=== PATIENT | male | born 1945 | race Caucasian/White ===

== ENCOUNTER 2017-08-14 12:19 | Emergency (ER) | payer MEDICARE, BC ==
[2017-08-14 13:48] LABS: #Basophils 0.1 thou/uL (0.0-0.2); #Eosinphils 0.5 thou/uL (0.0-0.7); #Lymphocytes 1.4 thou/uL (1.20-3.40); #Monocytes 0.8 thou/uL (0.11-0.59); #Neutrophils 3.1 thou/uL (1.40-6.50); %Basophils 1.2 % (0.0-1.0); %Eosinophils 7.9 % (0.0-10.0); Hemoglobin 14.1 g/dL (14.0-18.0); Mean Corpuscular HGB CONC 32.5 g/dL (32.0-36.0); Mean Corpuscular Hemoglobin 31.6 pg (27.0-31.0); Mean Corpuscular Volume 97.2 fl (80.0-94.0); Mean Platelet Volume 9.5 fL (7.4-10.4); Platelet Count 132 thou/uL (130-400); RBC Distribution Width 12.4 % (11.5-14.5); Red Blood Cell (RBC) Count 4.45 mill/uL (4.70-6.10); White Blood Cell (WBC) Count 5.8 thou/uL (4.8-10.8)
[2017-08-14 14:06] LABS: Anion Gap 11 mmol/L (10-20); BUN (Urea Nitrogen) 16 mg/dL (8.4-25.7); Calc. Creatinine Clearance 0 mL/min (70-130); Calcium 9.5 mg/dL (7.8-10.44); Carbon Dioxide 22 mmol/L (23-31); Chloride 107 mmol/L (98-107); Estimated GFR-MDRD Greater than 90; Glucose 91 mg/dL (83-110); Potassium 4.2 mmol/L (3.5-5.1); Sodium 136 mmol/L (136-145)
[2017-08-14 14:43] LABS: Bilirubin Negative (Negative); Blood, Urine Negative (Negative); Clarity CLEAR (Clear); Glucose, Urine (Dipstick) Negative (Negative); Leukocyte Negative (Negative); Nitrite Negative (Negative); Protein, Urine (Dipstick) Negative (Neg-Trace); Specific Gravity, Urine 1.015 (1.002-1.036); Urobilinogen 0.2 mg/dL (0.2-1.0); pH, Urine 6.5 (5.0-9.0)
== END 2017-08-14 15:20 ==
LOC: ERS 12:19
DX: R31.9 Hematuria, unspecified (principal); E78.5 Hyperlipidemia, unspecified; I10 Essential (primary) hypertension
CPT/HCPCS: 36415; 80048; 81003; 85025; 99283

== ENCOUNTER 2018-01-25 12:12 | Outpatient (CLI) | payer MEDICARE, BC ==
[2018-01-25 14:21] LABS: #Basophils 0.1 thou/uL (0.0-0.2); #Eosinphils 0.5 thou/uL (0.0-0.7); #Lymphocytes 1.6 thou/uL (1.20-3.40); #Monocytes 0.8 thou/uL (0.11-0.59); #Neutrophils 3.7 thou/uL (1.40-6.50); %Basophils 0.9 % (0.0-1.0); %Eosinophils 7.2 % (0.0-10.0); %Lymphocytes 24.1 % (21.0-51.0); %Monocytes 11.7 % (0.0-10.0); %Neutrophils 56.1 % (42.0-75.0); Hemoglobin 14.6 g/dL (14.0-18.0); Mean Corpuscular HGB CONC 33.6 g/dL (32.0-36.0); Mean Corpuscular Hemoglobin 32.7 pg (27.0-31.0); Mean Corpuscular Volume 97.4 fL (78.0-98.0); Mean Platelet Volume 9.9 fL (7.4-10.4); Platelet Count 141 thou/uL (130-400); RBC Distribution Width 12.5 % (11.5-14.5); Red Blood Cell (RBC) Count 4.45 mill/uL (4.70-6.10); White Blood Cell (WBC) Count 6.7 thou/uL (4.8-10.8)
[2018-01-25 14:47] LABS: Anion Gap 10 mmol/L (10-20); BUN (Urea Nitrogen) 16 mg/dL (8.4-25.7); Calc. Creatinine Clearance 0 mL/min (70-130); Calcium 9.2 mg/dL (7.8-10.44); Carbon Dioxide 24 mmol/L (23-31); Chloride 107 mmol/L (98-107); Estimated GFR-MDRD Greater than 90; Glucose 87 mg/dL (83-110); Potassium 4.1 mmol/L (3.5-5.1); Sodium 137 mmol/L (136-145)
--- NOTE | 2018-01-25 15:53 | RAD ---
PA AND LATERAL CHEST: History: Pre-operative evaluation. FINDINGS: The heart size is normal. The aorta is tortuous. The lungs are well expanded without focal areas of c onsolidation, pneumothorax, or pleural effusions. No acute osseous abnormality seen. IMPRESSION: No radiographic evidence of acute cardiopulmonary process. POS: [facility]
== END 2018-01-25 12:13 | disposition home or self-care (01) ==
LOC: LABBT 12:12
PROVIDERS: ATTEND Orthopaedic Surgery Hand Surgery
DX: Z01.818 Encounter for other preprocedural examination (principal); M18.12 Unilateral primary osteoarthritis of first carpometacarpal joint, left hand; M25.242 Flail joint, left hand
CPT/HCPCS: 71046; 80048; 85025; 93005; 93010

== ENCOUNTER 2018-01-26 07:24 | Day surgery (SDC) | payer MEDICARE, BC ==
[2018-01-25 12:56] VITALS: BMI 32.8
[2018-01-26] MEDS ORDERED: Fentanyl 100 MCG/2 ML VIAL ONE ×3 (07:35→10:06)
[2018-01-26] MEDS ORDERED: Midazolam HCl 2 mg/2 ml Vial ONE ×2 (07:35→09:37)
[2018-01-26] MEDS ORDERED: CEFAZOLIN 2 GM/50 ML BAG ONE (08:57)
[2018-01-26] MEDS ORDERED: Lidocaine 1% (PF) 30 ML VIAL ONE (09:41)
[2018-01-26] MEDS ORDERED: Bupivacaine PF 0.5% 30 ML VIAL ONE (10:01)
[2018-01-26] MEDS ORDERED: Sodium Chloride 0.9% 10 ML ONE (10:01)
[2018-01-26] MEDS ORDERED: Bacitracin Zinc Ointment 30 gm TUBE ONE (10:01)
[2018-01-26] MEDS ORDERED: HYDROcodone/Acetaminophen 5/325 mg Tablet PO PRN ×2 (10:35)
[2018-01-26] MEDS ORDERED: Promethazine HCl 25 MG/ML VIAL IM PRN (10:35)
[2018-01-26] MEDS ORDERED: Zolpidem Tartrate 5 MG TAB PO PRN (10:35)
[2018-01-26] MEDS ORDERED: Fentanyl 100 MCG/2 ML VIAL IV PRN (10:35)
[2018-01-26] MEDS ORDERED: traMADol HCl 50 MG TAB PO PRN ×2 (10:35)
[2018-01-26] MEDS ORDERED: Ropivacaine 0.2% 550 ML 550 ML NERVE BLCK SCH (10:35)
[2018-01-26] MEDS ORDERED: Ondansetron PF 4 MG/2 ML Vial IVP PRN (10:35)
[2018-01-26] MEDS ORDERED: PHENYLEPHRINE-NS 100 MCG/ML 10 ML SYRINGE ONE ×3 (11:21→14:37)
--- NOTE | 2018-01-26 12:57 | RAD ---
LEFT HAND THREE VIEWS: History: Left thumb joint replacement. FINDINGS/IMPRESSION: Multiple limited intraoperative fluoroscopic views of the left hand were submitted for interpretation . The patient has ongoing percutaneous pinning of the thumb metacarpal phalangeal joint. The later im ages show a pin within the trapezium which is eventually removed. The last image shows a pin appearin g to span the first and second metacarpals. POS: [facility]
[2018-01-26] MEDS ORDERED: Ropivacaine 0.2% HCl/PF (40 MG/20 ML VIAL) ONE (14:18)
[2018-01-26] MEDS ORDERED: Ropivacaine 0.5% HCl/PF (150 MG/30 ML VIAL) ONE (14:18)
[2018-01-26] MEDS ORDERED: ePHEDrine/0.9% NaCl/PF SYRINGE 50 mg/10 ml ONE (14:37)
[2018-01-26] MEDS ORDERED: PROPOFOL 200 MG/20 ML VIAL ONE (14:37)
[2018-01-26] MEDS ORDERED: Ondansetron PF 4 MG/2 ML Vial ONE (14:37)
[2018-01-26] MEDS ORDERED: Glycopyrrolate 0.2 MG/ML 5 ML SYRINGE ONE (14:37)
[2018-01-26] MEDS ORDERED: Lidocaine 1% PF 5 ML VIAL ONE (14:37)
--- NOTE | 2018-01-27 13:11 | OP ---
DATE OF PROCEDURE: 01/26/2018 PREOPERATIVE DIAGNOSES: 1. Left thumb carpometacarpal joint osteoarthritis. 2. Left thumb metacarpophalangeal joint laxity, recurrent subluxation. PROCEDURES PERFORMED: 1. Complete trapeziectomy, left thumb carpometacarpal joint. 2. Ligament placement, tendon position with flexor carpi radialis tendon transfer, left thumb carpom etacarpal joint. 3. C-arm supervision. 4. Left thumb metacarpophalangeal joint arthrotomy with capsulodesis/capsular shift procedure and pi nning of the joint. 5. Pinning of the thumb, first and second metacarpal. ESTIMATED BLOOD LOSS: 10 mL. TOURNIQUET TIME: 79 minutes. FINDINGS: Osteoarthritis great than 70% in total carpometacarpal joint with osteophyte formation bot h sides of carpometacarpal joint space. INDICATIONS: The patient is a male who has failed conservative treatment for these lesions, had pain for many years and now at age 73, it has caused great inability to perform activities of daily livin g with the left hand/thumb complex. DESCRIPTION OF PROCEDURE: After successful general LMA technique by [employer] [facility], the patient 's limb was then prepped and draped. The patient then had the time-out done appropriately, x-rays co nfirm that the [facility] was the site as well as did the markings. The history and physical and consent al l said left thumb carpometacarpal joint and MP joint. First, after exsanguination of limb and inflated tourniquet to 250 mmHg pressure, we outlined the cur vilinear incision over the carpometacarpal joint, volar skin to the dorsal skin junction and the inci jose juan centered just past the A1 julian of the thumb for the capsulodesis at the MP joint. First, HAJA saenz, carried through the skin and subcutaneous tissue, identified the digital nerves and protected t hem. We then made a V-shaped incision in the capsule, and then lifted this up and advanced it pants- over-vest using 4-0 Prolenes. We placed them in place to be tied and before tying them, reflected th e thumb to 20-25 degrees of flexion and then pinned it with a 0.45 K-wire across the joint in excelle nt position in frontal and sagittal plane and no gross motion. We then tied the sutures and it had e xcellent feel. We then cut this wire, once C-arm confirmed position to be in excellent, 4 mm protruding with a band in this to protect it from migration. I now turned attention to the primary carpometacarpal joint, curvilinear incision beginning as far __ ___ hand as just radial to the first carpi radialis outlined, carried through skin, subcutaneous tiss ue, protecting the radial nerve branches, the nerve branches, skin of the palm and then we could easi ly visualize the fascia of the thenar attachment to the metacarpal. We then released this, it, visualize the joint capsule just dorsal and ulnar to the abductor insertion. We protected this and released it. We then tagged it for two heavy 2-0 Monocryl for later closure, expanded and comple te until were back on the scaphoid and then we were able to free up the joint. It was here that we v isualized 70% high grade articular loss of bone on bone and eburnated bone surface is congruent, larg e osteophytes was excised, and there we placed a K-wire from the frontal and sagittal plane on the tr apezium. Trapezium was completely exposed, open sheath, protected it with traction and began t o slowly lift out the trapezium. Protecting the flexor carpi radialis insertion of the second metaca rpal, we then were able to excise it after C-arm confirmed that the threaded K-wire was in the trapez ium. Then, we placed a heavy Prolene in the deep ulnar aspect of the thumb posterior capsule for lat er use and securing with Anchovy and then prepared for drilling. We identified all the nerves on the dorsal side of the thumb protecting them, take the extensor tendo n of the thumb and then visualized the drill hole spot which is approximately 1.5 cm proximal to the joint on the lateral side, removed all osteophytes that was still visible in the base of the thumb an d then drilled this with first a 2.5 drill bit followed by a 3.5 drill bit. We expanded the entire _ ____ flexor carpi radialis tendon was, but we had an excellent tunnel. We protected this tunnel, the n proceeded to harvest the flexor carpi radialis tendon. We noted that the tunnel was drilled in the plane of the nail bed with the nail bed just parallel as possible to the palm. The patient's flexor carpi radialis tendon harvested using two separate incisions in forearm each one slightly more distal than the other from the wrist at the most proximal we found a muscle tendon kurt ction elevated, and released it with a sharp knife. We then dissected the muscle belly con nections free and then we were able to slowly and gently slide into the primary wound. Here, we marichuy funmi all remnants of muscle, and was easily able to pass this tendon through the drilled tunnel especi ally this had been opened more further with a curet. We then reduced the joint near its anatomic as possible slightly more distal than would be to protect the repair, placed a 0.45 K-wire from the meta carpal to protect ulnar nerves, distal to the tunnel, but into the second metacarpal. Once we confir med C-arm in frontal and sagittal plane, C-arm was done. We bent the wire, cut it at a level of 2 mm protruding from the skin at the thumb metacarpal. Then, we tensioned the graft as tight as possible with two 4-0 Prolenes at the graft bone junction tunnel outlet in the abductor pollicis where it was brought underneath and deep to this and then two along the base of the thumb before we even backed t o itself with heavy 4-0 Prolene. Then, we took the remnant that was left with two Pete needles, beg inning in the portion deepest in the space created by trapeziectomy, weaving it along the tendon unti l we had at least 12 weaves, then pulled the Prolene 3-0, it was inserted in the deep capsule. We th en passed one stitch on to each Pete needle brought through the needle, and then the interposition g raft was then placed deep and against the base of the thumb metacarpal as possible, we tied this over the appropriate tension deep in the capsule. We cut this suture, release of tourniquet, had excellent hemostasis and then began our closure. Firs t closure was done with the previously placed 2-0 Vicryl closing the capsule of the carpometacarpal j oint. We then repaired the fascia of the thenar back to the edge of the metacarpal fracture and some to the abductor with an interrupted 2-0 Vicryl. The subcutaneous closure was then accomplished, hem ostasis was excellent with interrupted 4-0 Monocryl and then this was done in the forearm incision as well. We closed the epidermal layers all at the same time with interrupted 4-0 nylon mattress patte rn both at the primary wrist procedure site and at the thumb metacarpophalangeal joint procedure site . There was excellent hemostasis and no undue bleeding. A splint was applied, sugar tong to include the digits and the patient left the operating room without evidence of anesthetic or operative compl ication.
== END 2018-01-26 15:35 | disposition home or self-care (01) ==
LOC: SDC 07:24
PROVIDERS: ATTEND Orthopaedic Surgery Hand Surgery
PROC: 0RRR0JZ Replacement of Left Carpal Joint with Synthetic Substitute, Open Approach (ICD-10-PCS; principal; 2018-01-26)
PROC: 0LX80ZZ Transfer Left Hand Tendon, Open Approach (ICD-10-PCS; 2018-01-26)
PROC: 0LU807Z Supplement Left Hand Tendon with Autologous Tissue Substitute, Open Approach (ICD-10-PCS; 2018-01-26)
PROC: 0RQT0ZZ Repair Left Carpometacarpal Joint, Open Approach (ICD-10-PCS; 2018-01-26)
DX: M19.042 Primary osteoarthritis, left hand (principal); M18.12 Unilateral primary osteoarthritis of first carpometacarpal joint, left hand; M25.732 Osteophyte, left wrist; M17.12 Unilateral primary osteoarthritis, left knee; I25.2 Old myocardial infarction; I25.10 Atherosclerotic heart disease of native coronary artery without angina pectoris; Z79.82 Long term (current) use of aspirin; Z79.899 Other long term (current) drug therapy; Z88.7 Allergy status to serum and vaccine
CPT/HCPCS: 25312; 25447; 26075; 73130; 76001; A4306; J2001; J2250; J2405; J2704; J2795; J3010; J3490; S0020

== ENCOUNTER 2018-06-03 00:07 | Outpatient (CLI) | payer MEDICARE, BC ==
[2018-06-03 14:16] LABS: Bilirubin Negative (Negative); Blood, Urine Negative (Negative); Clarity CLEAR (Clear); Glucose, Urine (Dipstick) Negative (Negative); Leukocyte Trace (Negative); Nitrite Negative (Negative); Protein, Urine (Dipstick) Negative (Neg-Trace); Specific Gravity, Urine 1.008 (1.002-1.036); Urobilinogen 0.2 mg/dL (0.2-1.0)
[2018-06-03 14:28] LABS: Bacteria/HPF None Seen HPF (None Seen); Hyaline Casts/LPF 0-3 HYALINE CAST LPF (0-3 Hyaline); Pathc Cast-AUWi Flag 0.67 (0-2.49); RBC/HPF 0-3 HPF (0-3); Squamous Epithelial None Seen HPF (0-3)
== END 2018-06-03 00:08 | disposition home or self-care (01) ==
LOC: LABBT 00:07
PROVIDERS: ATTEND Orthopaedic Surgery
DX: Z01.818 Encounter for other preprocedural examination (principal); M17.12 Unilateral primary osteoarthritis, left knee
CPT/HCPCS: 81001; 87081; 93005; 93010

== ENCOUNTER 2018-06-09 08:47 | Outpatient (CLI) | payer MEDICARE, BC ==
[2018-06-09 09:32] LABS: #Basophils 0.1 thou/uL (0.0-0.2); #Eosinphils 0.5 thou/uL (0.0-0.7); #Lymphocytes 1.5 thou/uL (1.20-3.40); #Monocytes 0.7 thou/uL (0.11-0.59); #Neutrophils 3.3 thou/uL (1.40-6.50); %Eosinophils 8.4 % (0.0-10.0); %Lymphocytes 24.3 % (21.0-51.0); %Monocytes 12.2 % (0.0-10.0); Hemoglobin 14.1 g/dL (14.0-18.0); Mean Corpuscular HGB CONC 32.6 g/dL (32.0-36.0); Mean Corpuscular Hemoglobin 31.5 pg (27.0-31.0); Mean Corpuscular Volume 96.5 fL (78.0-98.0); Mean Platelet Volume 9.4 fL (7.4-10.4); Platelet Count 146 thou/uL (130-400); RBC Distribution Width 12.5 % (11.5-14.5)
[2018-06-09 09:53] LABS: Anion Gap 11 mmol/L (10-20); BUN (Urea Nitrogen) 21 mg/dL (8.4-25.7); Calc. Creatinine Clearance 0 mL/min (70-130); Calcium 9.8 mg/dL (7.8-10.44); Carbon Dioxide 27 mmol/L (23-31); Chloride 104 mmol/L (98-107); Estimated GFR-MDRD 74; Glucose 104 mg/dL (83-110); Potassium 4.1 mmol/L (3.5-5.1); Sodium 138 mmol/L (136-145)
== END 2018-06-09 08:48 | disposition home or self-care (01) ==
LOC: LABBT 08:47
PROVIDERS: ATTEND Orthopaedic Surgery
DX: Z01.812 Encounter for preprocedural laboratory examination (principal); M17.12 Unilateral primary osteoarthritis, left knee
CPT/HCPCS: 80048; 85025; 85610; 86850; 86900; 86901

== ENCOUNTER 2018-06-14 05:31 | Inpatient (IN) | payer MEDICARE, BC ==
[2018-06-03 12:46] VITALS: BMI 32.8
[2018-06-14] MEDS ORDERED: Fentanyl 100 MCG/2 ML VIAL ONE (06:14)
[2018-06-14] MEDS ORDERED: Midazolam HCl 2 mg/2 ml Vial ONE (06:14)
[2018-06-14] MEDS ORDERED: Vancomycin HCl 1.5 GM in Sodium Chloride 0.9% 250 ML 300 ML IVPB SCH ×2 (06:15→20:00)
[2018-06-14] MEDS ORDERED: CEFAZOLIN 2 GM in Premix Bag 1 BAG IVPB SCH (06:15)
[2018-06-14] MEDS ORDERED: Tranexamic Acid 1,000 MG/10 ML VIAL ONE ×2 (06:37→09:02)
[2018-06-14] MEDS ORDERED: Sodium Chloride 0.9% 100 ML ONE (06:37)
[2018-06-14] MEDS ORDERED: Promethazine HCl 25 MG/ML VIAL IM PRN ×3 (07:11→09:01)
[2018-06-14] MEDS ORDERED: diphenhydrAMINE 25 MG CAP PO PRN (07:11)
[2018-06-14] MEDS ORDERED: HYDROcodone/Acetaminophen 10/325 mg Tablet PO PRN ×3 (07:11→07:45)
[2018-06-14] MEDS ORDERED: traMADol HCl 50 MG TAB PO PRN ×3 (07:11→07:45)
[2018-06-14] MEDS ORDERED: Zolpidem Tartrate 5 MG TAB PO PRN ×2 (07:11→07:45)
[2018-06-14] MEDS ORDERED: Fentanyl 100 MCG/2 ML VIAL SLOW IVP PRN ×2 (07:11→07:45)
[2018-06-14] MEDS ORDERED: Ondansetron PF 4 MG/2 ML Vial IVP PRN ×2 (07:11→07:45)
[2018-06-14] MEDS ORDERED: Acetaminophen 325 MG TAB PO PRN (07:11)
[2018-06-14] MEDS ORDERED: Tranexamic Acid 1,000 MG in Sodium Chloride 0.9% 100 ML IVPB SCH (07:15)
[2018-06-14] MEDS ORDERED: Bupivacaine PF 0.5% 30 ML VIAL ONE (07:40)
[2018-06-14] MEDS ORDERED: Ropivacaine HCl/PF 250 ML in Premix Bag 1 BAG NERVE BLCK SCH (07:45)
[2018-06-14] MEDS ORDERED: Ropivacaine 0.5% HCl/PF (150 MG/30 ML VIAL) ONE (08:26)
[2018-06-14] MEDS ORDERED: Ropivacaine 0.2% HCl/PF 20 ML ONE (08:26)
[2018-06-14] MEDS ORDERED: Aspirin Chewable 81 MG TAB PO SCH (09:00)
[2018-06-14] MEDS ORDERED: CeleCOXIB 100 MG CAP PO SCH (09:00)
[2018-06-14] MEDS ORDERED: Ondansetron HCl/PF 4 MG/2 ML Vial IVP PRN (09:01)
[2018-06-14] MEDS ORDERED: PACU-Morphine 4MG/ML VIAL SLOW IVP PRN (09:01)
[2018-06-14] MEDS ORDERED: HYDROmorphone 2 MG/ML VIAL SLOW IVP PRN (09:01)
[2018-06-14] MEDS ORDERED: Promethazine HCl 25 MG/ML VIAL SLOW IVP PRN (09:01)
[2018-06-14] MEDS: Ketorolac Tromethamine 30 MG/ML VIAL IVP SCH ×3 (12:54→23:12)
[2018-06-14] MEDS ORDERED: ePHEDrine 50 MG/ML VIAL ONE (15:18)
[2018-06-14] MEDS ORDERED: Dexamethasone 20 MG/5 ML VIAL ONE (15:18)
[2018-06-14] MEDS ORDERED: Ondansetron PF 4 MG/2 ML Vial ONE (15:18)
[2018-06-14] MEDS ORDERED: PROPOFOL 200 MG/20 ML VIAL ONE (15:18)
[2018-06-14] MEDS ORDERED: PHENYLEPHRINE-NS 100 MCG/ML 10 ML SYRINGE ONE (15:18)
[2018-06-14] MEDS ORDERED: Lidocaine 1% PF 5 ML VIAL ONE (15:18)
[2018-06-14] MEDS: CEFAZOLIN 2 GM in Premix Bag 1 BAG IVPB SCH ×2 (15:25→23:12)
[2018-06-14] MEDS: Carvedilol 6.25 MG TAB PO SCH ×2 (15:32→20:52)
--- NOTE | 2018-06-14 15:41 | OP ---
DATE OF PROCEDURE: 06/14/2018 MORTGAGE SALES MANAGER: Jarocho Felipe PA-C PREOPERATIVE DIAGNOSIS: Left knee osteoarthrosis. POSTOPERATIVE DIAGNOSIS: Left knee osteoarthrosis. PROCEDURE PERFORMED: Left total knee replacement using Trusera pinless navigation. ANESTHESIA: The patient did have a general anesthetic as well as preoperative block. ESTIMATED BLOOD LOSS: Minimal. COMPLICATIONS: None. DISPOSITION: He did go to recovery room in stable condition. IMPLANTS: To the left knee include triathlon total knee system. The femur was a size 5 cruciate retaining femur. We used a size 5 primary tibial base plate. We used a 5 x 9 mm CS X3 tibial poly and asymmetric 32 x 10 X3 poly patella. INDICATIONS: Marquise is a 73-year-old very active male, who has failed nonoperative treatment, at this time wished to have his knee replaced. PROCEDURE IN DETAIL: After all appropriate consent forms were explained and signed, the patient was taken back to the operating room and at this time was given general anesthetic. Once the level of anesthesia was appropriate, a well-padded tourniquet was placed on the leg, and the leg was then prepped and draped in standard surgical fashion. The limb was exsanguinated and tourniquet taken up to 300 mmHg. Midline incision was made with a 10 blade down through the skin and subcutaneous tissue. Bovie electrocautery was used to coagulate any brisk venous bleeding. A new blade was used to make a medial parapatellar arthrotomy. Small subperiosteal release was performed medially and excess fat pad was removed. The knee was flexed up to gain access to the femur. The femur was navigated and distal femoral resection was made. Epicondylar access was used to align our sizing jig and this was pinned in place. We sized our femur to be a. 4:1 cutting block was applied and pinned. Anterior and posterior chamfer cuts were then made. We navigated out our proximal tibia and made our proximal tibial resection. Spreaders were used to remove any posterior osteophytes off the back of the femur as well as remaining meniscal tissue. A long alignment lynette was then used to achieve correct rotation of our tibial baseplate and a size was chosen. This was pinned in place. We trialed the polyethylene and a polyethylene gave us full extension and good stability throughout range of motion. Two towel clips and a saw were used to cut our patella. Three lug nuts were drilled and patella was trialed which sat nicely in the trochlear groove. We then drilled our femur and punched our tibia. All components were removed. The knee was thoroughly irrigated and dried. Cement was mixed on the back table. Components were then placed. The knee was held out in full extension until the cement had dried. All excess bone cement was removed. Multiple #2 Vicryl stitches as well as a Quill were used to close our extensor mechanism. 0 Quill followed by a running Monoderm was then used to close the skin. Surgicel glue was then used on the skin. Once this had dried, soft tissue dressing was applied to the limb, tourniquet was let down, and the toes pinked up nicely. The patient was then awakened and taken to the recovery room in stable condition. All counts were correct at the end of the case. The patient did receive preoperative IV antibiotics. The patient was injected with Exparel for postoperative pain relief. Job ID: [id number] [facility]
[2018-06-14] MEDS: Aspirin 81 mg Enteric Coated Tablet PO SCH ×2 (17:23→20:52)
[2018-06-14] MEDS: Sodium Chloride 0.9% 1,000 ML IV SCH (18:26)
[2018-06-14] MEDS: Rosuvastatin 20 MG TAB PO SCH (20:51)
[2018-06-14] MEDS ORDERED: Calcium Carbonate 500 MG ChewTAB PO PRN (21:08)
--- NOTE | 2018-06-14 22:09 | CON ---
DATE OF CONSULTATION: 06/14/2018 CONSULTING PHYSICIAN: Dr. Abarca, orthopedic surgery. PURPOSE OF CONSULTATION: Medical management. HISTORY OF PRESENT ILLNESS: The patient is a 73-year-old male, who just underwent left total knee replacement by Dr. Abarca this morning. He does not have much complaints to offer except for some pain in the left knee area status post operation. He denies any chest pain. He denies use any shortness of breath. No constipation. No diarrhea. No abdominal pain. PAST MEDICAL HISTORY: Positive for: 1. Coronary artery disease. 2. Cardiomyopathy with LVEF of 45%. 3. Hyperlipidemia. 4. Myocardial infarction per history in 1998 involving the anterior wall. 5. Nephrolithiasis x4. 6. Macular degeneration. 7. Osteoarthritis. PAST SURGICAL HISTORY: 1. Coronary artery stent placement in June 1998, this was a placement to LAD. 2. Bilateral knee and shoulder surgery. 3. Cardiac catheterization. FAMILY HISTORY: Mother was killed by the train in her 70s and father had CVA. SOCIAL HISTORY: He used to smoke, but quit in 1971. He does not drink. He does not use any illicit drugs. ALLERGIES: TETANUS TOXOID, PRAVACHOL, AND LISINOPRIL. CURRENT MEDICATIONS: 1. Aspirin 81 mg twice daily. 2. Carvedilol 6.25 mg twice daily. 3. Celecoxib 200 mg once daily. 4. Ferrous gluconate 325 mg twice daily. Pantoprazole 40 mg once daily. 5. Rosuvastatin 20 mg at bedtime. 6. Zolpidem tartrate, which is Ambien 5 mg at bedtime p.r.n. as needed. 7. The patient is on p.r.n. pain medicine, tramadol, hydrocodone and fentanyl as needed. PHYSICAL EXAMINATION: GENERAL: He is not in any distress during my visit. HEENT: His head is atraumatic and normocephalic. Eyes are PERRLA. Sclerae are nonicteric. Oral mucosa is moist. NECK: Supple. LUNGS: Clear. HEART: S1, S2 normal. No S3. No S4. ABDOMEN: Soft, obese, nontender. EXTREMITIES: Left lower extremity is wrapped in the Chris wrap and bandage on his upper extremities. No cyanosis or edema. NEUROLOGIC: He is alert and oriented x4. There is no any motor or sensory deficits present. Cranial nerves are intact. LABORATORY DATA: None. IMAGING: EKG done on the 03 of June showed sinus bradycardia with ventricular rate of 59 beats per minute with left axis deviation and incomplete right bundle-branch block with some moderate voltage criteria for LVH and some evidence of anterolateral infarct with Q-waves in V3, V4, V5, and probably V6. IMPRESSION: 1. Status post left total knee replacement this morning. 2. Coronary artery disease and status post myocardial infarction, remote 20 years ago. 3. Macular degeneration in the right eye. 4. Hyperlipidemia. 5. Nephrolithiasis 4 times. RECOMMENDATIONS: I agree with the plan for DVT prophylaxis. Continue small dose of baby aspirin twice daily. I agree with continuation of his home medications. He is medically stable. He will be continued on PT per protocol postop total knee replacement and will have hemogram done tomorrow morning. Continue pain management with opioids and anti-inflammatory p.r.n. as needed. Job ID: [id number]
[2018-06-15] MEDS: Sodium Chloride 0.9% 1,000 ML IV SCH ×3 (02:43→22:16)
[2018-06-15 04:41] LABS: Hemoglobin 12.4 g/dL (14.0-18.0); Mean Corpuscular HGB CONC 31.6 g/dL (32.0-36.0); Mean Corpuscular Volume 98.2 fL (78.0-98.0); Mean Platelet Volume 9.2 fL (7.4-10.4); Platelet Count 131 thou/uL (130-400); RBC Distribution Width 12.6 % (11.5-14.5)
[2018-06-15] MEDS: Ketorolac Tromethamine 30 MG/ML VIAL IVP SCH ×4 (06:49→23:12)
[2018-06-15] MEDS: Senokot S 8.6-50 MG TAB PO SCH ×2 (08:25→19:39)
[2018-06-15] MEDS: Aspirin 81 mg Enteric Coated Tablet PO SCH ×2 (08:27→19:39)
[2018-06-15] MEDS: Multivitamin W/ Minerals 1 TAB PO SCH (08:27)
[2018-06-15] MEDS: Ferrous Gluconate 324 MG TAB PO SCH ×2 (08:27→18:22)
[2018-06-15] MEDS: Carvedilol 6.25 MG TAB PO SCH ×2 (09:15→19:43)
--- NOTE | 2018-06-15 09:59 | PRG ---
DATE OF SERVICE: 06/15/2018 SUBJECTIVE: Marquise is a 73-year-old white male, postoperative day 1 from a left total knee arthroplasty. He has very little in the way of complaints. He ambulated approximately 140 feet yesterday evening postoperatively with therapy. He has had no lightheadedness, no symptoms, and no shortness of breath or exertional dyspnea. OBJECTIVE: VITAL SIGNS: Temperature 98.6, pulse 61, respiratory rate 16 and nonlabored, blood pressure is 130/75. GENERAL: He is alert and oriented to person, place, time, and situation. Grossly nonfocal. EXTREMITIES: Incision, clean. No erythema. No strikethrough is noted. He is neurovascularly intact in both lower extremities. LABORATORY DATA: Hemoglobin and hematocrit 12.4 and 39.3. IMPRESSION: A 73-year-old male, postoperative day 1, left total knee arthroplasty, doing well. PLAN: Continue current care. Probable discharge tomorrow. Job ID: [id number]
[2018-06-15] MEDS: HYDROcodone/Acetaminophen 10/325 mg Tablet PO PRN (10:55)
--- NOTE | 2018-06-15 11:34 | PRG ---
DATE OF SERVICE: 06/15/2018 SUBJECTIVE: The patient is seen and examined at the bedside. He is doing well. He does not have much complaints to offer. OBJECTIVE: VITAL SIGNS: Blood pressure is 130/75, pulse is 61, temperature is 98.6, respiratory rate is 16, O2 saturation is 95% on room air. HEENT: His head is atraumatic and normocephalic. Eyes are PERRLA. Sclerae are nonicteric. NECK: Supple. LUNGS: Clear. HEART: S1 and S2 are normal. ABDOMEN: Soft, obese, and nontender. EXTREMITIES: extremity is in dressing. NEUROLOGIC: He is alert and oriented x4. There are no any motor or sensory deficits. Cranial nerves are intact. LABORATORY DATA: Showed white count of 11.0, hemoglobin 12.4, hematocrit 39.3, platelet count 131,000. IMPRESSION: 1. Status post left knee replacement. 2. Coronary artery disease status post myocardial infarction, remote 20 years ago, chronic, stable. 3. Macular degeneration in the right eye. 4. Hyperlipidemia. 5. Nephrolithiasis. 6. Cardiomyopathy with left ventricular ejection fraction of 45%, chronic, stable. 7. Osteoarthritis. PLAN: Plan is to continue his current regimen. Continue aspirin twice a day, his home medications, and follow the postoperative protocol with PT, and he should be able to go home tomorrow. Job ID: [id number]
[2018-06-15] MEDS: Rosuvastatin 20 MG TAB PO SCH (19:39)
[2018-06-16] MEDS: HYDROcodone/Acetaminophen 10/325 mg Tablet PO PRN ×3 (02:43→11:46)
[2018-06-16 04:58] LABS: Mean Corpuscular HGB CONC 32.6 g/dL (32.0-36.0); Mean Corpuscular Hemoglobin 32.1 pg (27.0-31.0); Mean Corpuscular Volume 98.4 fL (78.0-98.0); Mean Platelet Volume 9.6 fL (7.4-10.4); Platelet Count 118 thou/uL (130-400); RBC Distribution Width 12.6 % (11.5-14.5); Red Blood Cell (RBC) Count 3.74 mill/uL (4.70-6.10); White Blood Cell (WBC) Count 10.1 thou/uL (4.8-10.8)
[2018-06-16] MEDS: Ketorolac Tromethamine 30 MG/ML VIAL IVP SCH (06:25)
[2018-06-16] MEDS: Ferrous Gluconate 324 MG TAB PO SCH (07:44)
[2018-06-16] MEDS: Aspirin 81 mg Enteric Coated Tablet PO SCH (07:45)
[2018-06-16] MEDS: Carvedilol 6.25 MG TAB PO SCH (07:45)
[2018-06-16] MEDS: Multivitamin W/ Minerals 1 TAB PO SCH (07:45)
[2018-06-16] MEDS: Senokot S 8.6-50 MG TAB PO SCH (07:46)
[2018-06-16] MEDS ORDERED: CeleCOXIB 100 MG CAP PO SCH (09:00)
[2018-06-16] MEDS: Sodium Chloride 0.9% 1,000 ML IV SCH (11:32)
[2018-06-16 12:26] VITALS: TEMP 97.6
[2018-06-16 13:43] VITALS: BP 132/84
--- NOTE | 2018-06-16 16:36 | DIS ---
DATE OF ADMISSION: 06/14/2018 DATE OF DISCHARGE: 06/16/2018 TRANSFER OF CARE PRIMARY CARE PHYSICIAN: No PCP. Consultation to [facility] by Dr. Kyle Abarca. DISPOSITION: Discharged to home. FINAL DIAGNOSES: 1. Coronary artery disease. 2. Cardiomyopathy. 3. Hyperlipidemia. 4. Nephrolithiasis. 5. Macular degeneration. 6. Osteoarthritis. DISCHARGE MEDICATIONS: 1. Aspirin 81 mg a day. 2. Coreg 20 mg a day. 3. Omeprazole 20 mg a day. 4. Rosuvastatin 20 mg a day. 5. AREDS soft gel one a day. ALLERGIES: TETANUS VACCINE. HOSPITAL COURSE: The patient admitted to the hospital by Dr. Abarca on 06/14/2018. On 06/14/2018, he underwent left total knee replacement. He did well. [facility] was consulted for medical followup. The patient did well during his hospital stay. He was discharged this morning before [facility] could make round. Follow up will be with Dr. Abarca. Job ID: [id number]
== END 2018-06-16 14:04 | disposition home or self-care (01) | DRG 470 ==
LOC: SDC 05:31 → SJJU 07:11
PROVIDERS: ADMIT Orthopaedic Surgery; ATTEND Orthopaedic Surgery
PROC: 0SRD0J9 Replacement of Left Knee Joint with Synthetic Substitute, Cemented, Open Approach (ICD-10-PCS; principal; 2018-06-14)
DX: M17.12 Unilateral primary osteoarthritis, left knee (principal); I42.9 Cardiomyopathy, unspecified; I25.10 Atherosclerotic heart disease of native coronary artery without angina pectoris; H35.30 Unspecified macular degeneration; E78.5 Hyperlipidemia, unspecified; N20.0 Calculus of kidney; I25.2 Old myocardial infarction; Z98.61 Coronary angioplasty status; Z98.890 Other specified postprocedural states; Z87.891 Personal history of nicotine dependence; Z88.7 Allergy status to serum and vaccine; Z88.8 Allergy status to other drugs, medicaments and biological substances; Z79.82 Long term (current) use of aspirin
CPT/HCPCS: 36415; 85027; C1713; C1776; J1100; J1885; J2001; J2250; J2405; J2704; J2795; J3010; J3370; J3490; J7050; S0020

== ENCOUNTER 2018-07-06 18:22 | Emergency (ER) | payer MEDICARE, BC ==
--- NOTE | 2018-07-06 21:20 | RAD ---
RADIOGRAPH CHEST 2 VIEWS: DATE: 07/06/2018 HISTORY: 73-year-old male with urticaria, allergic reaction. FINDINGS: There is no airspace density, pulmonary edema, pleural effusion, pneumothorax, or cardiomegaly. IMPRESSION: No acute cardiopulmonary findings.
[2018-07-06 21:34] LABS: Hemoglobin 15.2 g/dL (14.0-18.0); Mean Corpuscular HGB CONC 32.7 g/dL (32.0-36.0); Mean Corpuscular Hemoglobin 31.8 pg (27.0-31.0); Mean Corpuscular Volume 97.3 fL (78.0-98.0); Mean Platelet Volume 8.7 fL (7.4-10.4); Platelet Count 284 thou/uL (130-400); RBC Distribution Width 12.3 % (11.5-14.5); Red Blood Cell (RBC) Count 4.79 mill/uL (4.70-6.10); White Blood Cell (WBC) Count 7.3 thou/uL (4.8-10.8)
[2018-07-06 21:52] LABS: Band 20 % (5-11); Eosinophils 2 % (0-10); Lymphocytes 33 % (21-51); MDiff Complete? YES; Monocytes 2 % (0-10); Myelocyte 1 % (0-0); Neutrophil 42 % (42-75)
[2018-07-06 22:18] LABS: ALT (SGPT) 29 U/L (8-55); AST (SGOT) 34 U/L (5-34); Albumin 3.9 g/dL (3.4-4.8); Alkaline Phosphatase 110 U/L (40-150); Anion Gap 20 mmol/L (10-20); BUN (Urea Nitrogen) 24 mg/dL (8.4-25.7); Bilirubin, Total 1.9 mg/dL (0.2-1.2); CK (CPK) 56 U/L (30-200); Calc. Creatinine Clearance 0 mL/min (70-130); Calcium 9.7 mg/dL (7.8-10.44); Carbon Dioxide 18 mmol/L (23-31); Chloride 98 mmol/L (98-107); Estimated GFR-MDRD 66; Globulin 3.6 g/dL (2.4-3.5); Glucose 107 mg/dL (83-110); Potassium 4.5 mmol/L (3.5-5.1); Protein, Total 7.5 g/dL (5.8-8.1); Sodium 131 mmol/L (136-145)
[2018-07-06] MEDS ORDERED: predniSONE 20 MG TAB ONE (23:45)
[2018-07-06] MEDS ORDERED: Famotidine 20 MG TAB ONE (23:45)
== END 2018-07-07 00:34 | disposition home or self-care (01) ==
LOC: ERS 18:22
DX: T78.40XA Allergy, unspecified, initial encounter (principal)
CPT/HCPCS: 36415; 71046; 80053; 82550; 83605; 84484; 85025; 93005; 94760; J7512

== ENCOUNTER 2019-03-14 07:56 | Day surgery (SDC) | payer MEDICARE, BC ==
[2019-03-11 09:14] VITALS: BMI 33.3
[2019-03-14 09:17] LABS: Hemoglobin 13.2 g/dL (14.0-18.0); Mean Corpuscular HGB CONC 33.2 g/dL (32.0-36.0); Mean Corpuscular Hemoglobin 32.5 pg (27.0-31.0); Mean Corpuscular Volume 97.9 fL (78.0-98.0); Mean Platelet Volume 9.3 fL (7.4-10.4); Platelet Count 120 thou/uL (130-400); RBC Distribution Width 12.6 % (11.5-14.5); Red Blood Cell (RBC) Count 4.06 mill/uL (4.70-6.10); White Blood Cell (WBC) Count 6.2 thou/uL (4.8-10.8)
[2019-03-14 09:30] LABS: Anion Gap 10 mmol/L (10-20); BUN (Urea Nitrogen) 12 mg/dL (8.4-25.7); Calc. Creatinine Clearance 103 mL/min (70-130); Calcium 8.8 mg/dL (7.8-10.44); Carbon Dioxide 25 mmol/L (23-31); Chloride 107 mmol/L (98-107); Estimated GFR-MDRD 79; Glucose 110 mg/dL (83-110); Potassium 4.1 mmol/L (3.5-5.1); Sodium 138 mmol/L (136-145)
[2019-03-14] MEDS ORDERED: Ketorolac Tromethamine 30 MG/ML VIAL ONE (10:13)
[2019-03-14] MEDS ORDERED: ePHEDrine/0.9% NaCl/PF SYRINGE 50 mg/10 ml ONE (10:13)
[2019-03-14] MEDS ORDERED: Lidocaine 1% PF 5 ML VIAL ONE (10:13)
[2019-03-14] MEDS ORDERED: PROPOFOL 200 MG/20 ML VIAL ONE (10:13)
[2019-03-14] MEDS ORDERED: Ondansetron PF 4 MG/2 ML Vial ONE (10:13)
[2019-03-14] MEDS ORDERED: Rocuronium Bromide 10 MG/ML (10ML VIAL) ONE (10:13)
[2019-03-14] MEDS ORDERED: Glycopyrrolate 0.2 MG/ML 5 ML SYRINGE ONE (10:13)
[2019-03-14] MEDS ORDERED: Fentanyl 100 MCG/2 ML VIAL ONE (11:23)
[2019-03-14] MEDS ORDERED: Tamsulosin HCl 0.4 MG CAP ONE (13:07)
--- NOTE | 2019-03-14 13:38 | OP ---
DATE OF PROCEDURE: 03/14/2019 INDIRECT SALES EXEC: Valentina Morales PA-C PROCEDURE PERFORMED: L4-L5 laminectomy. DESCRIPTION OF PROCEDURE: The patient was brought to the operating room and intubated. He was rolled in a prone position on gel-filled chest rolls. An incision was made exposing L4-L5 and the level was confirmed by x-ray. We performed complete L5 and inferior L4 laminectomies, completely decompressing the L4-L5 interspace. The wound was then extensively irrigated and MAC hemostasis was secured. Vancomycin powder was applied and the wound was closed in anatomic layers. Job ID: [id number]
--- NOTE | 2019-03-15 11:07 | EKG ---
Test Reason : PREOP Blood Pressure : / mmHG Vent. Rate : 053 BPM Atrial Rate : 053 BPM P-R Int : 188 ms QRS Dur : 094 ms QT Int : 454 ms P-R-T Axes : 010 -27 063 degrees QTc Int : 426 ms Sinus bradycardia Moderate voltage criteria for LVH, may be normal variant Anteroseptal infarct (cited on or before 26-JUN-2003) Abnormal ECG When compared with ECG of 06-JUL-2018 18:31, (Unconfirmed) Vent. rate has decreased BY 51 BPM Questionable change in initial forces of Septal leads Nonspecific T wave abnormality, worse in Anterolateral leads Confirmed by DR. Robert BORRERO ([id number]) on 03/15/2019 11:06:31 AM Referred By: LUISA Confirmed By:DR. Robert BORRERO
== END 2019-03-14 17:05 | disposition home or self-care (01) ==
LOC: SDC 07:56
PROVIDERS: ATTEND Neurological Surgery
PROC: 01NB0ZZ Release Lumbar Nerve, Open Approach (ICD-10-PCS; principal; 2019-03-14)
DX: M48.062 Spinal stenosis, lumbar region with neurogenic claudication (principal); I25.10 Atherosclerotic heart disease of native coronary artery without angina pectoris; Z79.82 Long term (current) use of aspirin; Z79.899 Other long term (current) drug therapy; Z88.7 Allergy status to serum and vaccine
CPT/HCPCS: 36415; 76000; 80048; 85027; 93005; 93010; J0690; J1885; J2001; J2405; J2704; J3010; J3370

== ENCOUNTER 2019-07-27 14:23 | Outpatient (CLI) | payer MEDICARE, BC ==
--- NOTE | 2019-07-27 15:03 | RAD ---
EXAM: LUMBAR SPINE TWO VIEWS: 07/27/19 HISTORY: Lumbar radicular pain, low back pain. Multilevel disc osteophytosis and facet arthrosis. Mild vertical height loss of T12 which appears sta ble from a prior MRI, 10/14/18. No significant malalignment. Evidence of laminectomy at L5. IMPRESSION: Lumbar spondylosis without acute fracture or dislocation. Status post laminectomy at L5. POS: [facility]
--- NOTE | 2019-07-27 15:07 | RAD ---
SACRUM AND COCCYX TWO VIEWS: 07/27/19 HISTORY: Low back pain. Two views of the sacrum and coccyx demonstrate some bone demineralization. Degenerative changes are n oted involving both right and left SI joints. No overt acute fracture or dislocation. IMPRESSION: Bone demineralization. Bilateral SI joint degenerative change. If patient has persistent or worsening pain in the sacral or coccygeal region, consider follow-up non emergent MRI which could potentially demonstrate abnormal findings not evidenced on plain film examin ation. Evidence for laminectomy at L5. POS: [facility]
== END 2019-07-27 14:24 | disposition home or self-care (01) ==
LOC: TBSIIMAG 14:23
PROVIDERS: ATTEND Neurological Surgery
DX: M47.26 Other spondylosis with radiculopathy, lumbar region (principal); M53.3 Sacrococcygeal disorders, not elsewhere classified; M47.818 Spondylosis without myelopathy or radiculopathy, sacral and sacrococcygeal region; M81.0 Age-related osteoporosis without current pathological fracture; Z98.890 Other specified postprocedural states
CPT/HCPCS: 72100; 72220

== ENCOUNTER 2019-08-08 11:06 | Outpatient (CLI) | payer MEDICARE, BC, OTHER ==
[2019-08-08 13:36] LABS: Hemoglobin 14.3 g/dL (14.0-18.0); Mean Corpuscular Hemoglobin 32.4 pg (27.0-31.0); Mean Corpuscular Volume 98.1 fL (78.0-98.0); Mean Platelet Volume 10.1 fL (7.4-10.4); Platelet Count 137 thou/uL (130-400); RBC Distribution Width 12.9 % (11.5-14.5); Red Blood Cell (RBC) Count 4.42 mill/uL (4.70-6.10); White Blood Cell (WBC) Count 6.8 thou/uL (4.8-10.8)
[2019-08-08 13:50] LABS: Anion Gap 10 mmol/L (10-20); BUN (Urea Nitrogen) 18 mg/dL (8.4-25.7); Calc. Creatinine Clearance 0 mL/min (70-130); Calcium 9.5 mg/dL (7.8-10.44); Carbon Dioxide 26 mmol/L (23-31); Chloride 105 mmol/L (98-107); Estimated GFR-MDRD 75; Glucose 87 mg/dL (83-110); Potassium 4.4 mmol/L (3.5-5.1); Sodium 137 mmol/L (136-145)
[2019-08-08 18:47] LABS: SARS-CoV-2 MS2 Positive; SARS-CoV-2 N Gene Negative; SARS-CoV-2 S Gene Negative; SARS-CoV-2 orf1ab Negative
== END 2019-08-08 11:07 | disposition home or self-care (01) ==
LOC: LABBT 11:06
PROVIDERS: ATTEND Urology
DX: Z01.818 Encounter for other preprocedural examination (principal); Z11.59 Encounter for screening for other viral diseases; N20.0 Calculus of kidney
CPT/HCPCS: 80048; 81001; 85027; 87086; 93005; U0003; 87635; 93010

== ENCOUNTER 2019-08-09 08:59 | Day surgery (SDC) | payer MEDICARE, BC ==
[2019-08-08 11:21] VITALS: BMI 33.2
[2019-08-09] MEDS ORDERED: Levofloxacin 500 mg/D5W 100 ml Premix Bag ONE (09:27)
[2019-08-09] MEDS ORDERED: Fentanyl 100 MCG/2 ML VIAL ONE (12:37)
[2019-08-09] MEDS ORDERED: Iopamidol 50 ML FS ONE (12:44)
[2019-08-09] MEDS ORDERED: EPHEDRINE 25 MG/5 ML SYRINGE ONE (12:50)
[2019-08-09] MEDS ORDERED: Glycopyrrolate 0.2 MG/ML 5 ML SYRINGE ONE (12:50)
[2019-08-09] MEDS ORDERED: PROPOFOL 200 MG/20 ML VIAL ONE (12:50)
[2019-08-09] MEDS ORDERED: Lidocaine 1% PF 5 ML VIAL ONE (12:50)
[2019-08-09] MEDS ORDERED: PHENYLEPHRINE-NS 100 MCG/ML 10 ML SYRINGE ONE (12:50)
[2019-08-09] MEDS ORDERED: Ondansetron PF 4 MG/2 ML Vial ONE (12:50)
[2019-08-09] MEDS ORDERED: Dexamethasone 20 MG/5 ML VIAL ONE (12:50)
--- NOTE | 2019-08-09 15:06 | OP ---
DATE OF PROCEDURE: 08/09/2019 PREOPERATIVE DIAGNOSES: Right ureteral stone, right renal stones, left renal stones. POSTOPERATIVE DIAGNOSES: Right ureteral stone, right renal stones, left renal stones. PROCEDURES PERFORMED: Right and left ureteroscopy with laser lithotripsy, basket extraction of stone, bilateral retrograde pyelogram, bilateral 4.8 x 26 double-J ureteral stent without strings. ANESTHESIA: General. COMPLICATIONS: None. ESTIMATED BLOOD LOSS: None. SPECIMEN: Stone fragments. DESCRIPTION OF PROCEDURE: After informed consent, the patient was taken to the operating room, transferred to the table under his own power. Anesthesia was established. A time-out was performed showing correct patient, site, and procedure. Preoperative antibiotics were administered. He was prepped and draped in the lithotomy position. The semi-rigid ureteroscope was advanced through the urethra noting normal course and caliber of the urethra into the bladder noting mildly obstructive prostate. The bladder was examined noting moderate trabeculation. The right ureteral orifice was identified and a wire was passed through this into the proximal ureter, where I was unable to bypass the stone. The ureteroscope was then inserted alongside the wire and passed up to the level of the stone. The stone was treated with the 273 micron laser fiber and fragmented into several small pieces. These were all removed with a 1.9 cm Nitinol basket. I then filled the renal pelvis with contrast and passed a 45 cm ureteral access sheath over the wire into the proximal ureter under fluoroscopic guidance. The flexible ureteroscope was then passed through this into the renal pelvis noting a few small stones, which were all treated with the 273 micron laser fiber and all clinically significant stone fragments were removed with the 1.9 cm Nitinol basket. The renal pelvis was then filled with contrast once again and the wire was replaced, after which the scope and access sheath were removed. A 4.8 x 26 double-J ureteral stent was passed over the wire with a curl in the kidney and curl in the bladder under fluoroscopic guidance. I then reinserted the semi-rigid ureteroscope and passed a wire into the left ureter, which was passed into the renal pelvis under fluoroscopic guidance. The ureteral access sheath was then passed over this wire into the proximal left ureter under fluoroscopic guidance and a retrograde pyelogram was performed through this showing good filling of the renal pelvis without filling defect. The flexible ureteroscope was then negotiated into the left renal pelvis noting a few small stones, which were all treated with the 273 micron laser fiber. No clinically significant stone fragments remained. The renal pelvis was then filled with contrast once again and the wire replaced before removing the scope and access sheath. A 4.8 x 26 double-J ureteral stent was passed over the wire with a curl in the kidney and curl in the bladder. Completion images were taken confirming good placement of both stents. The bladder was then drained. The patient was awoken from anesthesia, transferred back to his hospital bed and taken to the PACU in stable condition, where he will be discharged home upon recovery. Job ID: [id number]
== END 2019-08-09 15:12 | disposition home or self-care (01) ==
LOC: SDC 08:59
PROVIDERS: ATTEND Urology
PROC: 0TC48ZZ Extirpation of Matter from Left Kidney Pelvis, Via Natural or Artificial Opening Endoscopic (ICD-10-PCS; principal; 2019-08-09)
PROC: 0TC68ZZ Extirpation of Matter from Right Ureter, Via Natural or Artificial Opening Endoscopic (ICD-10-PCS; 2019-08-09)
PROC: 0TC38ZZ Extirpation of Matter from Right Kidney Pelvis, Via Natural or Artificial Opening Endoscopic (ICD-10-PCS; 2019-08-09)
PROC: 0T788DZ Dilation of Bilateral Ureters with Intraluminal Device, Via Natural or Artificial Opening Endoscopic (ICD-10-PCS; 2019-08-09)
DX: N20.2 Calculus of kidney with calculus of ureter (principal); N32.89 Other specified disorders of bladder; N40.1 Benign prostatic hyperplasia with lower urinary tract symptoms; R35.0 Frequency of micturition; I25.2 Old myocardial infarction; I25.10 Atherosclerotic heart disease of native coronary artery without angina pectoris; M19.90 Unspecified osteoarthritis, unspecified site; Z87.891 Personal history of nicotine dependence; Z79.82 Long term (current) use of aspirin; Z79.899 Other long term (current) drug therapy; Z88.7 Allergy status to serum and vaccine
CPT/HCPCS: 82365; 88300; J1100; J1956; J2001; J2405; J2704; J3010; Q9967

== ENCOUNTER 2020-06-05 13:14 | Outpatient (CLI) | payer MEDICARE, OTHER | END 2020-06-05 13:15 | disposition home or self-care (01) | LOC: RAD 13:14 | PROVIDERS: ATTEND Urology | DX: N20.0 Calculus of kidney (principal) | CPT/HCPCS: 74018 ==

== ENCOUNTER 2021-04-29 11:25 | Outpatient (CLI) | payer MEDICARE | END 2021-04-29 11:26 | disposition home or self-care (01) | LOC: BICRAD 11:25 | PROVIDERS: ATTEND Urology | DX: N20.0 Calculus of kidney (principal) | CPT/HCPCS: 74018 ==

== ENCOUNTER 2024-02-23 09:05 | Outpatient (CLI) | payer MEDICARE | END 2024-02-23 09:06 | disposition home or self-care (01) | LOC: BICMRI 09:05 | PROVIDERS: ATTEND Orthopaedic Surgery | DX: M48.061 Spinal stenosis, lumbar region without neurogenic claudication (principal); M47.816 Spondylosis without myelopathy or radiculopathy, lumbar region; M51.35 Other intervertebral disc degeneration, thoracolumbar region; M47.815 Spondylosis without myelopathy or radiculopathy, thoracolumbar region; M51.369 Other intervertebral disc degeneration, lumbar region without mention of lumbar back pain or lower extremity pain; M51.26 Other intervertebral disc displacement, lumbar region; M51.379 Other intervertebral disc degeneration, lumbosacral region without mention of lumbar back pain or lower extremity pain; M47.817 Spondylosis without myelopathy or radiculopathy, lumbosacral region; M25.78 Osteophyte, vertebrae | CPT/HCPCS: 72148 ==